=== PATIENT | female | born 1980 | race African-American/Black ===

== ENCOUNTER 2018-07-26 10:55 | Observation (INO) | payer MEDICAID ==
[~2018-07-26 10:55] MED LIST: ASPI-1159 PO; METO25TA6 PO; PREN-88 PO
== END 2018-07-26 13:30 | disposition home or self-care (01) ==
LOC: 8 EST LDRP 10:55
PROVIDERS: ADMIT Obstetrics & Gynecology; ATTEND Obstetrics & Gynecology
DX: O62.9 Abnormality of forces of labor, unspecified (principal); O09.523 Supervision of elderly multigravida, third trimester; Z3A.33 33 weeks gestation of pregnancy
CPT/HCPCS: 99281; G0378